=== PATIENT | male | born 1980 | race Caucasian/White ===

== ENCOUNTER → 2016-09-23 | Outpatient (CLI) | payer BC ==
[~2016-09-23] MED LIST: ACT30 PO; ASPEC81 PO; CLOP1TAB15 PO; HYDR-5688 PO; LPT40 PO; METH-307 PO; METH4PAK4 PO; METO100T44 PO; METO200T32 PO; OXYC-57 PO; OXYC1TAB3 PO
[2016-09-23 11:16] LABS: BLOOD UREA NITROGEN 15 mg/dl (7-18); BUN/CREATININE RATIO 16.3 (10-20); CALCIUM 9.2 mg/dl (8.5-10.1); CARBON DIOXIDE 27 mmol/L (21-32); CHLORIDE 102 mmol/L (98-107); CREATININE 0.93 mg/dl (0.60-1.40); GLUCOSE 169 mg/dl (70-99); SODIUM 137 mmol/L (136-145)
== END | disposition home or self-care (01) ==
LOC: C.LAB1850 09:12
PROVIDERS: ATTEND Internal Medicine Cardiovascular Disease
DX: I10 Essential (primary) hypertension (principal); I25.10 Atherosclerotic heart disease of native coronary artery without angina pectoris; E78.5 Hyperlipidemia, unspecified; R74.0 Nonspecific elevation of levels of transaminase and lactic acid dehydrogenase [LDH]; I77.810 Thoracic aortic ectasia

== ENCOUNTER → 2016-11-23 | Outpatient (CLI) | payer BC ==
[~2016-11-23] MED LIST changes: -METO100T44 PO; +METO1TAB69 PO; +METO1TAB71 PO; -METO200T32 PO
--- NOTE | 2016-11-24 06:41 | PAP/PSG TECHNICIAN REPORT ---
[facility] Grand Scribe Polysomnogram Report Study name: None Report date: 11/24/2016 Study date: 11/23/2016 Referring Physician: DR. RODRIGUEZ Name: SLOANE WRIGHT Interpreting Physician: Nash Singh D.O. Date of : 1980 Grand Scribe: Artis Flowers RPSGT. Sex: Male Age: 36 StudyType: PSG Weight: 376 lbs Height: 36 years, Height 6' 2" BMI: 48.27 Medications: NITROSTAT 0.4 MG, ATORVASTATIN 80 MG, ASPIRIN 81 MG, METOPROLOL 200 MG, HYDROCHLOROTHIAZIDE 25 MG, CLOPIDOGREL 75 MG, PIOGLITAZONE 15 MG Patient History PATIENT HAD A SLEEP STUDY DONE AROUND 10 YEARS AGO WAS POSITIVE FOR LILIA. HE TRIED CPAP FOR ABOUT 6 MONTHS BUT FELT LIKE IT GOT HIM AWAKE AND HE TROUBLE TOLERATING THE PRESSURE. HE NEVER HAD A CPAP TITRATION IN THE LAB. HE IS HERE TODAY FOR AN EVALUATION OF LILIA. ESS = 16 RM 8 Parameters Monitored NPSG: E1-M2, E2-M1, Fp1-M2, Fp2-M1, F3-M2, F4-M2, F4-M1, C3-M2, C4-M2, C4-M1, O1-M2, O2-M2, O2-M1, T3-M2, T4-M1, P3-M2, P4-M1, CHIN1, CHIN2, HR, EKG, Legs, PFLOW, SNOR, FLOW, CFLOW, Tidal Volume, THOR, ABDO, SpO2, PLTH, CPRESS, ETCO2 Wave, ETCO2, pH Sleep Architecture Sleep Stages Time at Lights Off 9:01:31 PM STAGES Time (min.) TST (%) Time at Lights On 5:29:31 AM Wake 82.5 -- Total Recording Time (TRT) 508.50 min. N1 22.0 5 Total Sleep Period (TSP) 459.0 min. N2 290.0 68 Total Sleep Time (TST) 425.5min. N3 42.0 10 Awake Time 82.5 min. REM 71.5 17 Wake after Sleep Onset 33.5 min. Sleep Efficiency (SE) 84 % Sleep Onset Latency (OCHOA) 49.0 min. Number of Stage 1 Shifts None Awakenings 17 Stage Changes 74 Number of REM periods 6 REM 71.5 17 REM Latency 130.5 min. NREM 354.0 83 Body Position Analysis Supine Right Left Side Prone Vertical Total Sleep Time (min.) 319.6 26.1 145.0 171.10 0.0 0.0 Total Sleep Time (%) 60% 6% 34% 40 0% N/A% Total Sleep Time REM (min.) 6.0 14.5 51.0 None 0.0 0.0 Total Sleep Time NREM (min.) 248.4 11.6 94.0 None 0.0 0.0 Intermittent Wake (min.) 65.2 1.6 15.8 None 0.0 0.0 Total Sleep Period (%) 59% None None None None None Arousals Myoclonus (PLM) * Events Count Index Events Count Index Spontaneous 18 3 Events Awake (PLMW) 59 42.9 Respiratory 10 2.0 Events Asleep w/ Arousal (PLMA) 2 0.3 PLM 2 0 Events Asleep w/o Arousal (PLMS) 61 8.6 Snoring 4 1 Total Asleep 63 8.9 Total 34 5 Total 122 14 Respiratory Analysis * CA OA MA CH H RERA Total Count 0 0 0 0 88 2 88 Index 0.0 0.0 0.0 0 12.4 0 12.7 Mean Duration 0.0 0.0 0.0 0.00 26.3 13.8 26.1 Longest Duration 0.0 0.0 0.0 0.00 0.0 15.6 58.7 Respiratory Event Summary Total Supine ~Supine Right Left Prone REM NREM Apneas Count 0 0 0 0 0 N/A 0 0 Index 0.0 0 0 0.0 0.0 N/A 0 0 Hypopneas (4% Desat) Count 88 36 52 15 37 N/A 60 28 Index 12.4 8.5 18 34.5 15.3 N/A 50.3 4.7 Apneas & All Hypopneas Count 88 36 52 15 37 N/A 60 28 Index 12.4 8 18 34 15 N/A 50.3 4.7 Respiratory Events (Crimp Setter+All Hyp+RERA) Count 88 37 53 15 38 N/A 60 28 Index 12.7 9 19 34.5 15.7 N/A 50.3 5.1 Respiratory Related Arousal Count 10 37 6 5 1 N/A 8 6 Index 2.0 2 2 11 0 N/A 7 1 Snoring Analysis Supine Right Left Prone REM NREM Total Snore duration 43.5 min Snores count 1,390 144 790 N/A 161 2,163 2,324 Snore mean duration 1.1 Sec Snores index 328 331 327 N/A 135.1 366.6 327.7 TST with snoring (%) 10.2% Desaturation Event Summary: Minimum %SpO2 Event Count Mean/Min/Max Duration(sec.) Desaturation Index % Time In Bed > 90 88 34.7 / 8.0 / 77.7 14.4 72.9 86 - 90 23 28.4 / 10.5 / 56.8 11.9 23.1 81 - 85 0 N/A 0.0 3.4 76 - 80 0 N/A 0.0 0.5 71 - 75 0 N/A 0.0 0.1 66 - 70 0 N/A 0.0 0.0 61 - 65 0 N/A 0.0 0.0 56 - 60 0 N/A 0.0 0.0 51 - 55 0 N/A 0.0 0.0 < 50 0 N/A 0.0 0.0 Total REM NREM Awake <50% 0.0 min. 0.0 min. 0.0 min. 0.0 min. 51 - 60% 0.0 min. 0.0 min. 0.0 min. 0.0 min. 61 - 70% 0.2 min. 0.0 min. 0.0 min. 0.2 min. 71 - 80% 3.0 min. 2.2 min. 0.0 min. 0.8 min. 81 - 90% 133.5 min. 38.8 min. 88.9 min. 5.8 min. 91 - 100% 367.7 min. 30.5 min. 263.3 min. 74.0 min. Average 91 89 91 92 Minimum SpO2 68 73 79 68 Desaturation Event Index 10.7 48.7 4.7 3.6 # Desat. Events below 89% 77 52 23 2 Time(%) with Saturation below 89% 7.9 6.2 1.3 0.5 Time(min.) with Saturation below 89% 39.8 31.1 6.4 2.3 Time (mins) REM (mins) NREM (mins) % of TST SpO2 Below 90% 85 58 N27 14.1 SpO2 Below 88% 44 0 0 7 Heart Rate Analysis Min (bpm) Max (bpm) Average (bpm) Awake 38 145 70 NREM 50 95 65 REM 48 85 61 Overall 48 95 65 Supplemental O2 Values Minimum O2 level: None Value Start Time End Time Grand Scribe Comments Mr. Wright slept in the supine, right and left positions. No cardiac arrhythmia noted. Leg movements noted. No bruxism noted. Snoring was noted and scored as a 3 on a scale of 1 through 5. (0=no snoring, 5=snoring loud enough to be heard through a closed door or down the cohen way) Mr. Wright awoke to use the restroom 0 times during the night. Mr. Wright stated I did not sleep as well as I do when I am in my own bed. The final report will be interpreted and signed by a sleep physician. The completed physician report will then be placed in the patient medical record. Therapy (cm H2O) 0 TIB (min.) 508.0 TST (min.) 425.5 Sleep Onset (min.) 49.0 REM Onset From Sleep (min.) 130.5 Sleep Efficiency % 84 Wakefulness (%) 16 Wakefulness (min.) 82.5 NREM 1 (%) 5 NREM 1 (min.) 22.0 NREM 2 (%) 68 NREM 2 (min.) 290.0 NREM 3 (%) 10 NREM 3 (min.) 42.0 REM (%) 17 REM (min.) 71.5 # Arousals 34 Arousal Index 5 # Snore 2,324 Snore Index 327.7 AHI 12.4 AHI Supine 8 AHI Non-Supine 18 NREM AHI 4.7 REM AHI 50.3 RDI 12.7 # Obstructive Apnea 0 # Central Apnea 0 # Mixed Apnea 0 # Hypopneas 88 RERAs 2 Total Respiratory Events 91 Time Below SpO2 89% (min.) 37.5 Mean NREM SpO2 (%) 91 Mean REM SpO2 (%) 89 Mean Sleep SpO2 (%) 91 Min NREM SpO2 (%) 79 Min REM SpO2 (%) 73 Position Supine (min.) 319.6 Position Non-supine (min.) 171.1 LM Index Sleep 8.9 LM Index NREM 8.3 LM Index REM 11.7 Mean Heart Rate (bpm) 65 Min Heart Rate (bpm) 48
--- NOTE | 2016-11-25 18:51 | POLYSOMNOGRAPH REPORT ---
SLEEP STUDY REPORT The patient is referred by Dr. Patel Aguayo. CLINICAL DATA: The patient is a 36-year-old male with a BMI of 48.27. He has a history of sleep apnea diagnosed approximately 10 years ago. He did not tolerate nasal CPAP therapy. He has been having problems of not feeling rested and having excessive daytime somnolence. In addition, he has had difficulty with focus and concentration. These problems seemed to be affecting his job. He is referred for an in-lab sleep study. A diagnostic study was done rather than a split study because he did not meet split study criteria. SLEEP ARCHITECTURE: The total sleep period was 459.0 minutes. The total sleep time was 425.5 minutes. The sleep efficiency was 84%. The sleep onset latency was prolonged to 49 minutes. The REM latency was prolonged to 130.5 minutes. Wake after sleep onset was 33.5 minutes. Sleep consisted of stage N1 5%, stage N2 68%, stage III 10%, and REM sleep, 17%. AROUSAL DATA: The patient had a total of 34 arousals including 18 spontaneous arousals, 10 respiratory arousals, 2 PLM arousals, and 4 snoring arousals. The arousal index was 5 events per hour. PERIODIC LIMB MOVEMENTS DATA: The patient had a total of 63 periodic limb movements during sleep for an index of 8.9 events per hour. There were only 2 events with arousals and the PLM arousal index was only 0.3. ELECTROCARDIOGRAM: The underlying cardiac rhythm was normal sinus. The cardiac rates ranged from 48-95 beats per minute. The average heart rate was 65 beats per minute. No arrhythmias were noted. RESPIRATORY DATA: The patient had a total of 88 respiratory events, all hypopneas. The apnea hypopnea index was mildly elevated at 12.4. It should be noted that the hypopnea was scored by the 4% desaturation rule. The mean duration of the hypopneas was 26.3 seconds. He also had 2 RERAs. OXIMETRY DATA: The patient had a minimum oxygen saturation of 68%. The average oxygenation was 91%. He had a total of 133.5 minutes with saturations between 81% and 90%. There was a total of 44 minutes below 88%. RADIOLOGY RESIDENT'S COMMENTS: Mr. Wright slept in the supine, right, and left positions. No cardiac arrhythmia noted. Leg movements noted. No bruxism noted. Snoring was noted and scored as a 3 on a scale of 1 through 5. IMPRESSIONS: 1. Obstructive sleep apnea - mild. 2. Nocturnal hypoxia. COMMENTS: The patient had mild sleep apnea with an apnea hypopnea index of 12.4. All the events were hypopneas. This was associated however with significant oxygen desaturations at times. A split study could not be done because he did not meet criteria for a split study. He did not have enough apneas in the first half of the night to qualify. He did have increased events during REM. The patient has significant symptoms with an [place] score of 16 out of a possible 25. It is notable that he did not do well with nasal CPAP in the past. He was bothered by the air pressure. Consideration could be given to treatment with BiPAP, in light of that. RECOMMENDATIONS: 1. It is advised that the patient be given treatment with either nasal CPAP or BiPAP. One option would be to treat him with auto CPAP. The alternative would be to refer him back to the sleep lab for a CPAP titration. Third alternative would be treatment with either BiPAP or auto BiPAP in light of his prior difficulties with CPAP. 2. It is suggested that the patient initiate a weight reduction program in light of his severe elevation of body mass index at 48.27. 3. The patient should be advised to avoid sleeping in the supine position. 4. The patient should be advised of the appropriate principles of sleep hygiene including allowing approximately 8 hours of sleep time per night and having a fairly regular sleep-wake schedule. 5. If the patient would refuse treatment with CPAP or BIPAP, consideration could be given to referral to a dental professional for treatment with an Oral Appliance. ROSNAA
== END | disposition home or self-care (01) ==
LOC: C.NEUR 20:00
PROVIDERS: ATTEND Family Medicine
DX: R40.0 Somnolence (principal); Z87.09 Personal history of other diseases of the respiratory system

== ENCOUNTER → 2017-01-29 | Outpatient (CLI) | payer BC ==
[~2017-01-29] MED LIST changes: -METH4PAK4 PO; +METO-649 PO; +METO100T44 PO; -METO1TAB69 PO; -METO1TAB71 PO; -OXYC1TAB3 PO
--- NOTE | 2017-01-30 06:20 | PAP/PSG TECHNICIAN REPORT ---
[facility] Municipal Services Manager Polysomnogram Report Study name: None Report date: 01/30/2017 Study date: 01/29/2017 Referring Physician: DR. RODRIGUEZ Name: SLOANE WRIGHT Interpreting Physician: Nash Singh D.O. Date of : 1980 Municipal Services Manager: Nicolle He [facility]. Sex: Male Age: 36 StudyType: PSG Weight: 376 lbs Height: 36 years, Height 6' 2" BMI: 48.27 Medications: NITROSTAT 0.4 MG, ATORVASTATIN 80 MG, ASPIRIN 81 MG, METOPROLOL 200 MG, HYDROCHLOROTHIAZIDE 25 MG, CLOPIDOGREL 75 MG, PIOGLITAZONE 15 MG Patient History 36 yr. old male here for a new titration sleep study. Patients PSG was done on 11/23/16 and had an AHI of 12.4. [place] sleepiness scale score 16/24. Parameters Monitored NPSG: E1-M2, E2-M1, Fp1-M2, Fp2-M1, F3-M2, F4-M2, F4-M1, C3-M2, C4-M2, C4-M1, O1-M2, O2-M2, O2-M1, T3-M2, T4-M1, P3-M2, P4-M1, CHIN1, CHIN2, HR, EKG, Legs, PFLOW, SNOR, FLOW, CFLOW, Tidal Volume, THOR, ABDO, SpO2, PLTH, CPRESS, ETCO2 Wave, ETCO2, pH Sleep Architecture Sleep Stages Time at Lights Off 8:28:07 PM STAGES Time (min.) TST (%) Time at Lights On 5:48:37 AM Wake 29.5 -- Total Recording Time (TRT) 561.50 min. N1 19.5 4 Total Sleep Period (TSP) 536.5 min. N2 257.0 48 Total Sleep Time (TST) 531.0min. N3 75.0 14 Awake Time 30.5 min. REM 179.5 34 Wake after Sleep Onset 6.0 min. Sleep Efficiency (SE) 95 % Sleep Onset Latency (OCHOA) 23.5 min. Number of Stage 1 Shifts None Awakenings 9 Stage Changes 48 Number of REM periods 9 REM 179.5 34 REM Latency 84.5 min. NREM 351.5 66 Body Position Analysis Supine Right Left Side Prone Vertical Total Sleep Time (min.) 363.1 0.0 170.8 170.76 0.0 24.7 Total Sleep Time (%) 68% 0% 32% 32 0% 100% Total Sleep Time REM (min.) 120.5 0.0 59.0 None 0.0 0.0 Total Sleep Time NREM (min.) 238.5 0.0 111.8 None 0.0 1.2 Intermittent Wake (min.) 4.1 0.0 1.9 None 0.0 23.5 Total Sleep Period (%) 68% None None None None None Arousals Myoclonus (PLM) * Events Count Index Events Count Index Spontaneous 3 0 Events Awake (PLMW) 19 38.6 Respiratory 0 0.0 Events Asleep w/ Arousal (PLMA) 4 0.5 PLM 3 0 Events Asleep w/o Arousal (PLMS) 92 10.4 Snoring 3 0 Total Asleep 96 10.8 Total 9 1 Total 115 12 Respiratory Analysis * CA OA MA CH H RERA Total Count 1 0 0 0 17 0 18 Index 0.1 0.0 0.0 0 1.9 0 2.0 Mean Duration 10.1 0.0 0.0 0.00 31.0 0.0 29.8 Longest Duration 10.1 0.0 0.0 0.00 0.0 0.0 43.4 Respiratory Event Summary Total Supine ~Supine Right Left Prone REM NREM Apneas Count 1 0 1 N/A 1 N/A 1 0 Index 0.1 0 0 N/A 0.4 N/A 0 0 Hypopneas (4% Desat) Count 17 9 8 N/A 8 N/A 16 1 Index 1.9 1.5 3 N/A 2.8 N/A 5.3 0.2 Apneas & All Hypopneas Count 18 9 9 N/A 9 N/A 17 1 Index 2.0 2 3 N/A 3 N/A 5.7 0.2 Respiratory Events (Cost Report Clerk+All Hyp+RERA) Count 18 9 9 N/A 9 N/A 17 1 Index 2.0 2 3 N/A 3.2 N/A 5.7 0.2 Respiratory Related Arousal Count 0 9 0 N/A 0 N/A 0 0 Index 0.0 0 0 N/A 0 N/A 0 0 Snoring Analysis Supine Right Left Prone REM NREM Total Snore duration 7.0 min Snores count 200 N/A 228 N/A 62 366 428 Snore mean duration 1.0 Sec Snores index 33 N/A 80 N/A 20.7 62.5 48.4 TST with snoring (%) 1.3% Desaturation Event Summary: Minimum %SpO2 Event Count Mean/Min/Max Duration(sec.) Desaturation Index % Time In Bed > 90 21 33.8 / 9.5 / 56.0 3.4 65.7 86 - 90 9 25.4 / 12.3 / 44.0 2.8 34.1 81 - 85 0 N/A 0.0 0.1 76 - 80 0 N/A 0.0 0.0 71 - 75 0 N/A 0.0 0.0 66 - 70 0 N/A 0.0 0.0 61 - 65 0 N/A 0.0 0.0 56 - 60 0 N/A 0.0 0.0 51 - 55 0 N/A 0.0 0.0 < 50 0 N/A 0.0 0.0 Total REM NREM Awake <50% 0.0 min. 0.0 min. 0.0 min. 0.0 min. 51 - 60% 0.0 min. 0.0 min. 0.0 min. 0.0 min. 61 - 70% 0.0 min. 0.0 min. 0.0 min. 0.0 min. 71 - 80% 0.0 min. 0.0 min. 0.0 min. 0.0 min. 81 - 90% 191.9 min. 51.0 min. 138.6 min. 2.4 min. 91 - 100% 368.3 min. 128.5 min. 212.9 min. 26.9 min. Average 91 91 91 92 Minimum SpO2 84 84 88 88 Desaturation Event Index 2.5 6.7 0.5 0.0 # Desat. Events below 89% 14 14 N/A N/A Time(%) with Saturation below 89% 2.7 1.7 1.0 0.0 Time(min.) with Saturation below 89% 15.4 9.7 5.5 0.1 Time (mins) REM (mins) NREM (mins) % of TST SpO2 Below 90% 20 18 N2 11.7 SpO2 Below 88% 8 0 0 1 Heart Rate Analysis Min (bpm) Max (bpm) Average (bpm) Awake 58 97 75 NREM 57 92 72 REM 54 95 71 Overall 54 95 72 Supplemental O2 Values Minimum O2 level: None Value Start Time End Time Municipal Services Manager Comments Mr. Wright slept in the right, left, and supine positions. No cardiac arrhythmia or PLMs noted. No bruxism noted. CPAP was initiated at +4 CMH2O room air and up-titrated to an optimal level of +9 CMH2O Cflex 2, which nearly eliminated all respiratory events and snoring. A medium ResMed Quattro air, was used during titration. Mr. Wright did not wake to use the restroomduring the night. Mr. Wright stated, I slept well. The final report will be interpreted and signed by a sleep physician. The completed physician report will then be placed in the patient medical record. Therapy Event: Therapy (cm H20) 4 5 6 7 8 9 Total Time at Pressure (min.) 91.0 33.8 13.6 84.3 221.8 116.0 TST at Pressure (min.) 67.5 33.8 12.1 84.3 220.3 113.0 # Periods 1 1 1 1 1 1 Sleep Onset (min.) 23.5 0.0 0.0 0.0 0.0 0.0 REM Onset (min.) N/A 17.0 0.0 78.1 0.0 0.0 Sleep Efficiency % 74 100 89 100 99 97 Wakefulness (%) 25.8 0.0 11.0 0.0 0.7 2.6 Wakefulness (min.) 23.5 0.0 1.5 0.0 1.5 3.0 NREM 1 (%) 6.6 0.0 28.7 0.1 2.7 3.0 NREM 1 (min.) 6.0 0.0 3.9 0.1 6.0 3.5 NREM 2 (%) 63.7 20.7 0.0 35.6 49.1 45.7 NREM 2 (min.) 58.0 7.0 0.0 30.0 109.0 53.0 NREM 3 (%) 3.8 29.6 0.0 56.9 6.1 0.0 NREM 3 (min.) 3.5 10.0 0.0 48.0 13.5 0.0 REM (%) 0.0 49.7 60.3 7.4 41.4 48.7 REM (min.) 0.0 16.8 8.2 6.2 91.8 56.5 # Arousals 2 0 0 0 4 3 Arousal Index 1.8 0.0 0.0 0.0 1.1 1.6 # Snore 152 69 0 49 140 18 Snore Index 135.1 122.5 0.0 34.9 38.1 9.6 AHI 0.0 8.9 14.9 2.1 1.4 1.1 AHI Supine N/A N/A 0.0 2.1 1.4 1.2 AHI Non-Supine 0.0 8.9 21.9 N/A N/A 1.0 NREM AHI 0.0 0.0 0.0 0.0 0.0 1.1 REM AHI N/A 17.9 21.9 29.0 3.3 1.1 RDI 0.0 8.9 14.9 2.1 1.4 1.1 # Obstructive 0 0 0 0 0 0 # Central Ap 0 0 0 0 0 1 # Mixed 0 0 0 0 0 0 # Hypopneas 0 5 3 3 5 1 RERAS 0 0 0 0 0 0 Total Respiratory Events 0 5 3 3 5 2 Time Below SpO2 89.00% (min.) 0.0 3.2 0.7 8.6 2.1 0.6 Mean NREM SpO2 (%) 91 90 90 90 91 92 Mean REM SpO2 (%) N/A 90 91 88 91 92 Mean Sleep SpO2 (%) 91 90 91 89 91 92 Min NREM SpO2 (%) 89 89 89 88 89 89 Min REM SpO2 (%) N/A 85 88 84 86 88 Position Supine (min.) 0.0 0.0 3.9 84.3 220.3 50.5 Position Non-supine (min.) 67.5 33.8 8.2 0.0 0.0 62.5 LM Index Sleep 42.7 1.8 5.0 11.4 5.2 5.8 LM Index NREM 42.7 3.5 0.0 11.5 6.5 6.4 LM Index REM N/A 0.0 7.3 9.7 3.3 5.3 Mean Heart Rate (bpm) 74 72 70 72 73 67 Min Heart Rate (bpm) 63 61 58 63 59 54
--- NOTE | 2017-01-30 23:07 | POLYSOMNOGRAPH REPORT ---
REFERRING DOCTOR: Dr. Patel Aguayo. CLINICAL DATA: The patient is a 36-year-old male who has a BMI of 48.27. He had a diagnostic sleep study done 11/23/2016 showing obstructive sleep apnea with an apnea-hypopnea index of 12.4. He has symptoms of snoring, disturbed nocturnal sleep, and excessive daytime somnolence. His [place] score is 16. He is referred back for a CPAP titration study. SLEEP ARCHITECTURE: The total sleep period was 536.5 minutes. The total sleep time was 531.0 minutes. The sleep efficiency was 95%. The sleep onset latency was 23.5 minutes. Wake after sleep onset was only 6 minutes. REM latency was normal at 84.5 minutes. Sleep consisted of stage N1 4%, stage N2 48%, stage N3 14%, and stage REM 34%. AROUSAL DATA: The patient had a total of 9 arousals including 3 spontaneous arousals, 3 PLM arousals, and 3 snoring arousals. The arousal index was only 1 per hour. PERIODIC LIMB MOVEMENT DATA: The patient had a total of 96 periodic limb movements during sleep for an index of 10.8. There were 4 arousals for a PLM arousal index of 0.5. EKG: The cardiac rhythm was normal sinus. The cardiac rates ranged from 54 up to 95 beats per minute. The average was 72 beats per minute. No arrhythmias were noted. RESPIRATORY DATA: The patient's nocturnal events were treated with nasal CPAP which was titrated to a final pressure of 9 cm. For the entire night, the patient had a total of 18 respiratory events including 1 central apnea and 17 hypopneas. Hypopneas were scored by the 4% desaturation rule. The apnea-hypopnea index was 2.0 events per hour. The apnea was 10.1 seconds. The mean duration of the hypopneas was 31 seconds. OXIMETRY DATA: The average saturation for the night was 91%. The minimum saturation was 84%. The patient had a total of 15.4 minutes with saturations less than 89%. ELECTRIC TRIPPER MACHINE OPERATOR'S COMMENTS: Mr. Wright slept in the right, left, and supine positions. No cardiac arrhythmia noted. No bruxism noted. CPAP was initiated at +4 cm of water on room air and titrated up to an optimal level of 9 cm water with C-Flex 2. This nearly eliminated all respiratory events and snoring. A ResMed Quattro Air full facemask size medium was utilized. The patient indicated he slept well. IMPRESSIONS: 1. Obstructive sleep apnea - resolved with nasal CPAP at 9 cm. 2. Periodic limb movement disorder. COMMENTS: The patient did very well with his CPAP titration. His sleep efficiency was high. His sleep was well consolidated. There were a few awakenings or arousals. He still had some transient oxygen desaturations. RECOMMENDATIONS: 1. It is advised that the patient be started on nasal CPAP at 9 cm with a C-Flex set at 2. 2. It is suggested that he be ordered a ResMed Quattro Air full facemask size medium. 3. A weight reduction program is advised in light of the severe elevation of body mass index at 48.27. 4. If possible, the patient should avoid sleeping in the supine position. 5. The patient should be seen in followup between day 31 and day 90 after receiving his CPAP. ROSANA
== END | disposition home or self-care (01) ==
LOC: C.NEUR 20:00
PROVIDERS: ATTEND Family Medicine
DX: G47.30 Sleep apnea, unspecified (principal)

== ENCOUNTER 2017-02-07 08:25 | Emergency (ER) | payer BC ==
[~2017-02-07] VITALS: Ht 188 cm; Wt 160.0 kg
[~2017-02-07 08:25] MED LIST changes: -ACT30 PO; -METO-649 PO; -OXYC-57 PO
[2017-02-07 08:26] VITALS: Ht 188 cm; Wt 160.0 kg
[2017-02-07] MEDS ORDERED: ONDANSETRON 4MG OD TAB PO STA (08:45)
[2017-02-07] MEDS ORDERED: MoRPHine SULFATE 10 MG/ML CARP/VIAL IM STA ×2 (08:45→09:32)
[2017-02-07] MEDS ORDERED: OXYCODONE HCL IR 5 MG TAB (IMMEDIATE RELEASE) PO STA (09:32)
[2017-02-07] MEDS ORDERED: METO-649 PO (09:36)
[2017-02-07] MEDS ORDERED: ACT30 PO (09:36)
[2017-02-07 09:54] VITALS: O2SAT 95
[2017-02-07] MEDS ORDERED: OXYC-57 PO (10:38)
[2017-02-07 10:48] VITALS: BP 134/75; PULSE 57; O2SAT 92
--- NOTE | 2017-02-07 21:27 | EMERGENCY ROOM VISIT NOTE ---
History First contact with patient: 08:34 Chief Complaint: HIP PAIN Stated Complaint: HIP AND BACK PAIN History of Present Illness The patient is a 36 year old white male who presents to the Emergency Room with complaints of right low back and buttock pain. Symptoms began last weekend. He states he was putting on a new roof and was reaching for a shingle. He had immediate onset of pain in his right low back. It became worse that evening. He has been dealing with it throughout the week. He finally went to see his chiropractor yesterday and states he felt good when he left. This morning he woke up in worse pain. He points to the right SI joint and right buttock as his area of discomfort. No prior history of similar pain. He is having difficulty with movement. No loss of bowel or bladder control. Pain is worse with weight-bearing on the right leg. There were no falls. No direct trauma. He denies any numbness or tingling. His accompanies him today. He has tried Tylenol and activity modification without improvement. He does have a history of heart stents and is on Plavix. Review of Systems REVIEW OF SYSTEM: HEENT: No dizziness, visual problems, hearing loss, or tinnitus. There is no difficulty swallowing and no oral lesions are present. LYMPH: No adenopathy. PULMONARY: No cough, shortness of breath, sputum production or hemoptysis. CARDIOVASCULAR: No palpitations, shortness of breath or peripheral edema. GASTROINTESTINAL: No diarrhea, constipation, nausea, vomiting, or abdominal pain. GENITOURINARY: No dysuria, frequency, urgency or nocturia. NEUROLOGIC: No weakness, muscle tenderness, epilepsy or history of neurological problems. MUSCULOSKELETAL: No history of joint tenderness/swelling. No history of arthritis or arthralgias. SKIN: No rashes or lesions. PSYCHIATRIC: No history of depression or mental illness. ENDOCRINE: No history of diabetes, thyroid disorders, or abnormal hair growth. Past Medical/Surgical History Medical Problems: (1) Cholecystectomy (2) Hypertension Family History Cancer Diabetes mellitus Gallbladder disease Heart disease Hypertension Kidney disease Kidney stones Social History Smoking Status: Former Smoker Smokeless Tobacco Use: No Alcohol Use: occasionally Drug Use: none Marital Status: Housing Status: lives with family Occupation Status: employed Current/Historical Medications Scheduled Aspirin (Aspirin EC Low Dose), 81 MG PO QAM Atorvastatin (Atorvastatin Calcium), 80 MG PO QAM Clopidogrel (Plavix), 75 MG PO DAILY Metoprolol Succinate (Toprolxl (Toprol-Xl), 1 TAB PO DAILY Pioglitazone (Actos), 1 TAB PO DAILY Scheduled PRN Hydrocodone/Acetaminophen 5MG/325MG ([place] 5MG/325MG), 1 TABLET PO Q4 PRN for Pain Oxycodone/Acetaminophen 5MG/325MG (Percocet 5MG/325MG), 1-2 TABS PO Q6H PRN for Pain Allergies Coded Allergies: Prednisone (Unverified Allergy, Unknown, HIVES, 06/03/16) Lisinopril (Unverified Adverse Reaction, Severe, HIVES, 06/03/16) Physical Exam Vital Signs Date Time Temp Pulse Resp B/P Pulse Ox O2 Delivery O2 Flow Rate FiO2 02/07/17 10:48 57 20 134/75 92 02/07/17 10:42 57 20 134/75 92 Room Air 02/07/17 09:54 95 Room Air 02/07/17 09:30 68 18 154/82 96 Room Air 02/07/17 08:26 79 22 175/110 97 Room Air Pain Rating (0-10): 7.0 Physical Exam Gen.: Well-developed, well-nourished, very large young white male, in obvious discomfort. No acute distress. Standing at bedside. Alert and oriented. Tearful at times. Skin:Warm and dry with good turgor. No rashes or lesions. No ecchymosis or erythema. The patient is not diaphoretic. No abrasions. Musculoskeletal: Low back evaluation reveals no obvious asymmetry or deformity. No pain with palpation over the vertebral bodies or discs spaces. Focal pain with palpation over the right SI joint extending into the right buttock. Mild discomfort over the right greater trochanter and IT band. No pain with palpation over his quadriceps musculature or hamstring musculature. Right SI joint pain is worse with weight-bearing on the right leg. No pain with palpation over his groin or flexion crease. Supple internal and external rotation with worsening pain at the SI joint. Ambulatory with a noticeable limp. Neurologic: Gross sensation is intact across the right leg by soft touch. Peripheral pulses are 2+. Medical Decision & Procedures Medications Administered Medications (Trade) Dose Ordered Sig/Irish Route Start Time Stop Time Status Last Admin Dose Admin Morphine Sulfate (MoRPHine SULFATE INJ) 8 mg NOW STAT IM 02/07/17 08:45 02/07/17 08:47 DC 02/07/17 08:53 8 MG Ondansetron HCl (Zofran Odt) 4 mg NOW STAT PO 02/07/17 08:45 02/07/17 08:47 DC 02/07/17 08:53 4 MG Morphine Sulfate (MoRPHine SULFATE INJ) 6 mg NOW STAT IM 02/07/17 09:32 02/07/17 09:33 DC 02/07/17 09:40 6 MG Oxycodone HCl (Roxicodone Immediate Rel Tab) 5 mg NOW STAT PO 02/07/17 09:32 02/07/17 09:33 DC 02/07/17 09:41 5 MG Morphine 8 mg IM, morphine 6 mg IM, Zofran 4 mg ODT, OxyIR 5mg by mouth ED Course Patient was educated regarding today's findings. Conservative care measures were discussed. I do not think radiographic imaging is necessary at this point. He may ultimately require MRI imaging if symptoms persist. He was initially given morphine 8 mg IM and Zofran 4 mg ODT. Pain reduced by 1/10. He was given an additional 6 mg morphine IM and was able to lay down flat on the bed. I did place a pillow under his knees to take pressure off the low back. Pain reduced and was tolerable. He felt well enough to go home. He was also given a tablet of OxyIR with the second dose of morphine. Patient was able to ambulate gingerly from the department. Importance of physical therapy or chiropractic was discussed. Gentle stretching daily. Apply ice to the low back intermittently. Return to the ED for any acute changes or loss of bowel or bladder control. Prescription for Percocet was provided. Patient is unable to take anti-inflammatories due to his Plavix use. Medical Decision Possibility of muscle strain, fracture, SI joint dysfunction, labral tear, disc disease, and right leg radiculopathy were considered, among others. Impression Primary Impression: SI (sacroiliac) joint dysfunction Departure Information Dispostion Home / Self-Care Condition GOOD Prescriptions Oxycodone/Acetaminophen 5MG/325MG (PERCOCET 5MG/325MG) Tab 1-2 TABS PO Q6H Y for Pain, #24 TAB For Initial Treatment Prov: Florencio Gavin,P.A. 02/07/17 Forms WORK / SCHOOL INSTRUCTIONS, HOME CARE DOCUMENTATION FORM, Days off work : 2 Work Instructions, Specific Date: 02/10/17 IMPORTANT VISIT INFORMATION Patient Instructions My [employer] Additional Instructions Gentle stretching daily Avoid any heavy lifting Avoid bending at the waist Percocet 1-2 tablets every 6 hours as needed for severe pain-no driving Follow-up with your chiropractor or physical therapist this week for further treatment Sleep on your back with a pillow under your knees, or on your side with a pillow between your knees. Work Instructions Specific Date: 02/10/17
== END 2017-02-07 10:49 | disposition home or self-care (01) ==
LOC: C.EDB 08:26 → C.EDA 10:49
DX: M53.3 Sacrococcygeal disorders, not elsewhere classified (principal); I10 Essential (primary) hypertension; Z79.82 Long term (current) use of aspirin; Z79.899 Other long term (current) drug therapy; Z90.49 Acquired absence of other specified parts of digestive tract; Z87.891 Personal history of nicotine dependence; Z88.8 Allergy status to other drugs, medicaments and biological substances; Z80.9 Family history of malignant neoplasm, unspecified; Z83.3 Family history of diabetes mellitus; Z83.79 Family history of other diseases of the digestive system; Z82.49 Family history of ischemic heart disease and other diseases of the circulatory system; Z84.1 Family history of disorders of kidney and ureter

== ENCOUNTER → 2017-12-22 | Outpatient (CLI) | payer OTHER ==
[~2017-12-22] MED LIST changes: +ACT30 PO; -ASPEC81 PO; +ASPI-320 PO; -METH-307 PO; -METO100T44 PO; +METO200T32 PO
== END | disposition home or self-care (01) ==
LOC: C.PATHSPEC 17:48
PROVIDERS: ATTEND Urology
DX: Z30.2 Encounter for sterilization (principal)